=== PATIENT | female | born 1970 | race Caucasian/White ===

== ENCOUNTER 2023-12-16 12:52 | Outpatient (CLI) | payer MEDICAID | END 2023-12-16 23:59 | disposition home or self-care (01) | LOC: MRI 12:52 | PROVIDERS: ATTEND Physician Assistant | DX: M47.22 Other spondylosis with radiculopathy, cervical region (principal); M62.838 Other muscle spasm; M43.12 Spondylolisthesis, cervical region; M50.10 Cervical disc disorder with radiculopathy, unspecified cervical region; Z72.0 Tobacco use; J32.0 Chronic maxillary sinusitis; R90.82 White matter disease, unspecified | CPT/HCPCS: 72141 ==